=== PATIENT | female | born 1955 | race Caucasian/White ===

== ENCOUNTER → 2023-01-01 12:10 | Outpatient (REF) | payer MEDICARE, SELFPAY | LOC: WDC 12:10 | PROVIDERS: ATTENDING PHYSICIAN Surgery; FAMILY PHYSICIAN Family Medicine | DX: C50.411 Malignant neoplasm of upper-outer quadrant of right female breast (principal) | CPT/HCPCS: C1819; 19285; 38792; 76942; 77065; A9541 ==

== ENCOUNTER → 2023-10-28 14:26 | Outpatient (REF) | payer MEDICARE, SELFPAY | LOC: WDC 14:26 | PROVIDERS: ATTENDING PHYSICIAN Surgery; FAMILY PHYSICIAN Family Medicine | DX: Z12.31 Encounter for screening mammogram for malignant neoplasm of breast (principal); Z85.3 Personal history of malignant neoplasm of breast; C50.411 Malignant neoplasm of upper-outer quadrant of right female breast; Z17.0 Estrogen receptor positive status [ER+] | CPT/HCPCS: 77063; 77067 ==

== ENCOUNTER 2024-07-14 06:18 | Day surgery (SDC) | payer MEDICARE, SELFPAY | END 2024-07-14 11:31 | disposition home or self-care (01) | LOC: GI 06:18 | PROVIDERS: ATTENDING PHYSICIAN Surgery | DX: Z12.11 Encounter for screening for malignant neoplasm of colon (principal); K57.30 Diverticulosis of large intestine without perforation or abscess without bleeding; D17.79 Benign lipomatous neoplasm of other sites; K64.9 Unspecified hemorrhoids; K62.89 Other specified diseases of anus and rectum; D12.3 Benign neoplasm of transverse colon; K52.9 Noninfective gastroenteritis and colitis, unspecified | CPT/HCPCS: 45380; 88305 ==

== ENCOUNTER → 2024-10-28 13:04 | Outpatient (REF) | payer MEDICARE, SELFPAY | LOC: WDC 13:04 | PROVIDERS: ATTENDING PHYSICIAN Nurse Practitioner Adult Health; FAMILY PHYSICIAN Family Medicine | DX: Z12.31 Encounter for screening mammogram for malignant neoplasm of breast (principal) | CPT/HCPCS: 77063; 77067 ==

== ENCOUNTER → 2024-12-09 10:01 | Outpatient (REF) | payer MEDICARE, SELFPAY | LOC: RAD 10:01 | PROVIDERS: ATTENDING PHYSICIAN Family Medicine | DX: M15.0 Primary generalized (osteo)arthritis (principal); Z78.0 Asymptomatic menopausal state | CPT/HCPCS: 77080 ==